=== PATIENT | female | born 1990 | race American Indian/Alaskan Native ===

== ENCOUNTER 2022-03-09 19:42 | Emergency (ER) | payer MEDICAID ==
[2022-03-09 20:19] VITALS: BP 136/75
--- NOTE | 2022-03-12 14:06 | Electrocardiograph Report ---
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
== END 2022-03-10 08:31 | disposition left against medical advice (07) ==
LOC: ED 19:42
DX: R07.89 Other chest pain (principal); M54.2 Cervicalgia; Z53.21 Procedure and treatment not carried out due to patient leaving prior to being seen by health care provider
CPT/HCPCS: 93005